=== PATIENT | female | born 2000 | race Caucasian/White ===

== ENCOUNTER 2018-06-11 18:23 | Emergency (ER) | payer OTHER ==
[~2018-06-11] VITALS: Ht 170.2 cm; Wt 68.0 kg
[2018-06-11 18:46] LABS: URINE BILIRUBIN NEGATIVE (Negative); URINE BLOOD NEGATIVE (Negative); URINE CLARITY CLEAR; URINE COLOR YELLOW; URINE GLUCOSE-RANDOM* NEGATIVE (Negative); URINE KETONES NEGATIVE (Negative); URINE LEUKOCYTES-REFLEX NEGATIVE (Negative); URINE NITRITE-REFLEX NEGATIVE (Negative); URINE PROTEIN (DIPSTICK) NEGATIVE (Negative); URINE SPECIFIC GRAVITY >= 1.030 (1.005-1.035); URINE UROBILINOGEN 0.2 E.U./dl (0.2-1.0)
[2018-06-11 19:22] LABS: ABSOLUTE NEUTROPHILS 6.5 thou/uL (1.4-8.2); BASOPHILS 0.9 % (0.0-2.0); EOSINOPHILS 0.3 % (0.0-3.0); HEMATOCRIT 38.8 % (37.0-47.0); HEMOGLOBIN 13.1 gm/dL (12.0-15.0); LYMPHOCYTES 20.3 % (24.0-44.0); MCH 29.3 pg (26.0-34.0); MCHC 33.9 g/dL (28.0-37.0); MCV 86.6 fL (80.0-100.0); MONOCYTES 4.7 % (1.0-8.0); PLATELET COUNT 242 thou/uL (150-400); POLYS 73.8 % (36.0-66.0); RBC 4.48 mil/uL (4.20-5.00); RDW 12.6 % (10.5-14.5); WBC 8.8 thou/uL (4.0-11.0)
[2018-06-11 19:31] LABS: CALCIUM 9.2 mg/dL (8.5-10.1); CREATININE 0.8 mg/dL (0.6-1.0); POTASSIUM 3.6 mmol/L (3.5-5.1)
[2018-06-11 19:38] LABS: ALBUMIN 3.6 g/dL (3.4-5.0); TOTAL BILIRUBIN 0.5 mg/dL (<0.1-1.0); TOTAL PROTEIN 7.5 g/dL (6.4-8.2)
[2018-06-11] MEDS ORDERED: IBUPROFEN 800800 M1 PO (20:28)
[2018-06-11] MEDS ORDERED: NORCO 5-325 TA1 EACH PO (20:28)
[2018-06-11 20:56] VITALS: BP 96/59
== END 2018-06-11 20:56 | disposition home or self-care (01) ==
LOC: EDBD 18:23 → ER 18:23
PROVIDERS: Nurse Practitioner Family
DX: N83.201 Unspecified ovarian cyst, right side (principal)

== ENCOUNTER 2018-06-13 18:22 | Emergency (ER) | payer OTHER ==
[~2018-06-13] VITALS: Ht 170.2 cm; Wt 68.0 kg
[~2018-06-13 18:22] MED LIST: IBUPROFEN 800800 M1 PO; NORCO 5-325 TA1 EACH PO
[2018-06-13 18:34] VITALS: BP 110/64
[2018-06-13 19:11] LABS: URINE BILIRUBIN NEGATIVE (Negative); URINE BLOOD 3+ (Negative); URINE COLOR YELLOW; URINE GLUCOSE-RANDOM* NEGATIVE (Negative); URINE KETONES NEGATIVE (Negative); URINE LEUKOCYTES-REFLEX NEGATIVE (Negative); URINE NITRITE-REFLEX NEGATIVE (Negative); URINE PROTEIN (DIPSTICK) 1+ (Negative); URINE SPECIFIC GRAVITY 1.015 (1.005-1.035); URINE UROBILINOGEN 0.2 E.U./dl (0.2-1.0)
[2018-06-13 19:13] LABS: URINE CLARITY HAZY
[2018-06-13 19:20] LABS: BACTERIA-REFLEX >30 Many /HPF (None Seen); SQUAMOUS >10 Many /LPF (0-3); URINE WBC-REFLEX 0-5 Rare /HPF (0-5)
[2018-06-13 19:21] LABS: CASTS None Seen /LPF (None Seen); CRYSTALS None Seen /LPF (None Seen)
[2018-06-13 21:37] LABS: ABSOLUTE NEUTROPHILS 4.5 thou/uL (1.4-8.2); BASOPHILS 0.6 % (0.0-2.0); EOSINOPHILS 1.2 % (0.0-3.0); HEMATOCRIT 34.1 % (37.0-47.0); HEMOGLOBIN 11.7 gm/dL (12.0-15.0); LYMPHOCYTES 34.1 % (24.0-44.0); MCH 29.6 pg (26.0-34.0); MCHC 34.2 g/dL (28.0-37.0); MCV 86.7 fL (80.0-100.0); MONOCYTES 7.2 % (1.0-8.0); PLATELET COUNT 228 thou/uL (150-400); POLYS 56.9 % (36.0-66.0); RBC 3.93 mil/uL (4.20-5.00); RDW 12.7 % (10.5-14.5); WBC 7.8 thou/uL (4.0-11.0)
[2018-06-13 21:52] LABS: CALCIUM 8.9 mg/dL (8.5-10.1); CREATININE 0.8 mg/dL (0.6-1.0); POTASSIUM 3.6 mmol/L (3.5-5.1)
[2018-06-13 21:57] LABS: ALBUMIN 3.6 g/dL (3.4-5.0); TOTAL BILIRUBIN 0.4 mg/dL (<0.1-1.0); TOTAL PROTEIN 7.5 g/dL (6.4-8.2)
[2018-06-13] MEDS ORDERED: NAPROSYN500 MG PO (22:24)
[2018-06-13] MEDS ORDERED: ULTRAM 50MG TAB50 MG PO (22:24)
== END 2018-06-13 23:45 | disposition home or self-care (01) ==
LOC: ER 18:22 → EDBD 18:22 → ER 23:45
PROVIDERS: Physician Assistant; Student in an Organized Health Care Education/Training Program
DX: N83.201 Unspecified ovarian cyst, right side (principal); R10.2 Pelvic and perineal pain

== ENCOUNTER 2018-09-01 03:13 | Emergency (ER) | payer BC ==
[~2018-09-01] VITALS: Ht 170.2 cm; Wt 63.5 kg
[~2018-09-01 03:13] MED LIST changes: +NAPROSYN500 MG PO; +ULTRAM 50MG TAB50 MG PO
[2018-09-01 03:20] VITALS: BP 115/60
== END 2018-09-01 04:10 | disposition home or self-care (01) ==
LOC: ER 03:13
DX: S01.112A Laceration without foreign body of left eyelid and periocular area, initial encounter (principal); W54.8XXA Other contact with dog, initial encounter; Y92.89 Other specified places as the place of occurrence of the external cause; Y93.89 Activity, other specified; Y99.8 Other external cause status